=== PATIENT | male | born 1985 | race Caucasian/White ===

== ENCOUNTER 2025-02-28 14:26 | Emergency (ER) | payer MEDICAID, OTHER ==
[~2025-02-28] VITALS: Ht 165.1 cm; Wt 74.8 kg
[2025-02-28 14:55] LABS: PLATELET COUNT (AUTO) 225 K/uL (150-450); RED BLOOD CELL COUNT(AUTO) 5.02 MIL/uL (4.5-6.0); RED CELL DISTRIBUTION WIDTH 12.5 % (11.5-15.0); WHITE BLOOD COUNT (AUTO) 9.0 K/uL (4.3-11.0)
[2025-02-28 15:02] LABS: CALCIUM, SERUM 8.9 mg/dL (8.5-10.1); CREATININE 0.9 mg/dL (0.6-1.3); SODIUM SERUM 136 mmol/L (136-145); UREA NITROGEN, BLOOD 9 mg/dL (7-18)
[2025-02-28] MEDS ORDERED: PANTOPRAZOLE 40 MG VIAL ONE (15:42)
[2025-02-28] MEDS ORDERED: ONDANSETRON HCL/PF 4 MG/2 ML VIAL ONE (15:42)
[2025-02-28] MEDS: IV NS 0.9% 500 ML BAG IV ONE (15:47)
[2025-02-28] MEDS: ONDANSETRON HCL/PF 4 MG/2 ML VIAL IVP ONE (15:51)
[2025-02-28] MEDS: PANTOPRAZOLE 40 MG VIAL IV ONE (15:52)
[2025-02-28 16:09] LABS: ASPARTATE AMINOTRANSFERASE 22.0 U/L (15-37); TOTAL PROTEIN, SERUM 7.8 g/dL (6.4-8.2)
[2025-02-28] MEDS ORDERED: ONDA4TAB5 PO (16:24)
[2025-02-28] MEDS ORDERED: PANT40TA2 PO (16:24)
[2025-02-28 17:55] VITALS: BP 130/100; TEMP 98.4; O2SAT 98
== END 2025-02-28 17:56 | disposition home or self-care (01) ==
LOC: ER 14:30
DX: R10.13 Epigastric pain (principal); I11.9 Hypertensive heart disease without heart failure; R11.10 Vomiting, unspecified
CPT/HCPCS: 99285; 96374; 76705; 71045; 96361; 96375; 93005; 85025; 80048; 83690; 80076; 36415; 84484; J2405; J7030; J7040; J2470